=== PATIENT | male | born 1975 | race African-American/Black ===

== ENCOUNTER 2019-06-25 11:07 | Emergency (ER) | payer SELFPAY ==
--- OUTSIDE RECORDS SUMMARY | 2019-06-25 11:09 | XMS REPORT ---
:1975 Author Organization [facility] Address [address] [place] [address] [address] [place] [address] Care Team Providers Name Role Phone Unavailable Unavailable Unavailable Payers Payer Name Policy Type Policy Number Effective Date Expiration Date Problems This patient has no known problems. Allergies, Adverse Reactions, Alerts Allergy Allergy Status Severity Reaction(s) Onset Inactive Treating Comments Name Type Date Date Clinician No Known DA Active U 2018-10 Allergies 00:00:0 0 No Known DA Active U 2005-11 Contrast -30 Allergies 00:00:0 0 No Known DA Active U 2005-11 Drug -30 Allergies 00:00:0 0 No Known DA Active U 2005-11 Food -30 Allergies 00:00:0 0 No Known DA Active U 2005-11 Other -30 Allergies 00:00:0 0 Medications This patient has no known medications. Results Test Description Test Time Test Comments Text Results Atomic Results Result Comments - XR ELBOW 3+V RT 2018-11-08 13:12:00 Name: SUNITA NUNES [facility] Анна : 1975 Age/S: 42 / M [id number] [place] Unit #: [id number] Loc: [place] [address] Phys: Joselo Sheppard MD Acct: [id number] Dis Date: Status: REG ER PHONE #: [phone] Exam Date: 11/08/2018 1305 FAX #: Reason: right elbow EXAMS: CPT: [id number] XR ELBOW 3+V RT [address] Fluoro Time: DAP (Gy m2): Air Kerma (mGy): EXAMINATION: - XR ELBOW 3+V RT. LOCATION: B2. HISTORY: right elbow. COMPARISON: None. TECHNIQUE: AP, lateral, and oblique views of the right elbow were obtained. FINDINGS: No acute fracture or dislocation is identified. Soft tissue structures appear within normal limits. IMPRESSION: No acute osseous abnormality is identified. at 1312 Reported and signed by: Negin De León M.D. CC: Ioana BAKER; Joselo Sheppard MD PAGE 1 Signed Report Name: SUNITA NUNES [facility] Анна : 1975 Age/S: 42 / M [address] Unit #: [id number] Loc: [place] [address] Phys: Joselo Sheppard MD Acct: [id number] Dis Date: Status: REG ER PHONE #: [phone] Exam Date: 11/08/2018 1305 FAX #: Reason: right elbow EXAMS: CPT: [id number] XR ELBOW 3+V [place] [address] Fluoro Time: DAP (Gy m2): Air Kerma (mGy): <Continued> Technologist: Poonam Alexander, RT(R); ... Trnscb Date/Time: 11/08/2018 (3042) [email or web address] Orig Print D/T: S: 11/08/2018 (2348) PAGE 2 Signed Report
[2019-06-25] MEDS ORDERED: FENTANYL CITR 100 MCG/2 ML ONE (11:47)
[2019-06-25] MEDS ORDERED: METHOCARBAMOL 1,000 MG/10 ML VIAL IV ONE (11:48)
[2019-06-25] MEDS ORDERED: KETOROLAC 30 MG/ML INJ ONE (11:49)
[2019-06-25] MEDS ORDERED: NA CHLORIDE 0.9% 100 ML IV ONE (11:49)
[2019-06-25] MEDS ORDERED: dexAMETHasone 4 MG/ML VIAL ONE (11:57)
--- NOTE | 2019-06-25 13:16 | ER ---
Nurse's Notes [facility] Name: Kyle Keita Age: 43 yrs Sex: Male : 1975 Arrival Date: 06/25/2019 Time: 11:18 Bed 13 Private MD: Diagnosis: Low back pain Presentation: 06/25 11:21 Presenting complaint: EMS states: Picking up a mud-pit at work, felt pop in low back jl7 and then pain all over, reports low back pain rated 6/10. Transition of care: patient was not received from another setting of care. Onset of symptoms was June 25, 2019. Risk Assessment: Do you want to hurt yourself or someone else? Patient reports no desire to harm self or others. Initial Sepsis Screen: Does the patient meet any 2 criteria? No. Patient's initial sepsis screen is negative. Does the patient have a suspected source of infection? No. Patient's initial sepsis screen is negative. Care prior to arrival: Medication(s) given: Fentanyl 75 mcg IVP IV initiated. 20 GA, in the right antecubital area. 11:21 Method Of Arrival: EMS: [facility] jl7 11:21 Acuity: LEIGH 4 jl7 Historical: - Allergies: 11:23 No Known Allergies; jl7 - Home Meds: 11:23 None [Active]; jl7 - PMHx: 11:23 None; jl7 - PSHx: 11:23 None; jl7 - Immunization history:: Adult Immunizations unknown. - Coronavirus screen:: The patient has NOT traveled to [place], [place], or [place] in the past 14 days. Proceed with normal triage process as indicated. - Social history:: Smoking status: Patient reports the use of cigarette tobacco products, smokes one-half pack cigarettes per day. - Ebola Screening: : No symptoms or risks identified at this time. Screenin:35 Abuse screen: Denies threats or abuse. Denies injuries from another. Nutritional ca1 screening: No deficits noted. Tuberculosis screening: No symptoms or risk factors identified. [place] Risk IV access (20 points). Assessment: 11:35 General: Appears in no apparent distress. comfortable, Behavior is calm, cooperative, ca1 appropriate for age. Pain: Complains of pain in low back area Pain does not radiate. Pain currently is 7 out of 10 on a pain scale. Neuro: Level of Consciousness is awake, alert, obeys commands, Oriented to person, place, time, situation, Appropriate for age. Cardiovascular: Heart tones S1 S2 present. Cardiovascular: Capillary refill < 3 seconds Patient's skin is warm and dry. Respiratory: Airway is patent Respiratory effort is even, unlabored, Respiratory pattern is regular, symmetrical, Breath sounds are clear bilaterally. GI: Abdomen is flat, non-distended, Bowel sounds present X 4 quads. Abd is soft and non tender X 4 quads. : No deficits noted. No signs and/or symptoms were reported regarding the genitourinary system. EENT: No deficits noted. No signs and/or symptoms were reported regarding the EENT system. Derm: Skin is intact, is healthy with good turgor, Skin is pink, warm \T\ dry. Musculoskeletal: Circulation, motion, and sensation intact. Capillary refill < 3 seconds. 12:36 Reassessment: Patient appears in no apparent distress at this time. No changes from ca1 previously documented assessment. Patient and/or family updated on plan of care and expected duration. Pain level reassessed. Patient is alert, oriented x 3, equal unlabored respirations, skin warm/dry/pink. 13:34 Reassessment: Patient appears in no apparent distress at this time. Patient is alert, ca1 oriented x 3, equal unlabored respirations, skin warm/dry/pink. Vital Signs: 11:23 BP 138 / 99; Pulse 58; Resp 16 S; Temp 97.9(O); Pulse Ox 99% on R/A; Weight 88.45 kg 7 (R); Height 6 ft. 2 in. (187.96 cm) (R); Pain 6/10; 12:36 BP 121 / 86; Pulse 57; Resp 16 S; Pulse Ox 100% on R/A; ca1 13:34 BP 124 / 83; Pulse 62; Resp 16 S; Pulse Ox 99% on R/A; Pain 2/10; ca1 11:23 Body Mass Index 25.04 (88.45 kg, 187.96 cm) 7 ED Course: 11:18 Patient arrived in ED. bd 11:22 Triage completed. jl7 11:23 Ernst Resendiz PA is PHCP. jr8 11:23 Cholo Cunningham MD is Attending Physician. jr8 11:23 Arm band placed on right wrist. hayes 11:35 Patient has correct armband on for positive identification. Bed in low position. Call ca1 light in reach. Side rails up X 1. Pulse ox on. NIBP on. 11:35 No provider procedures requiring assistance completed. Maintain EMS IV. Dressing ca1 intact. Good blood return noted. Site clean \T\ dry. Gauge \T\ site: G22 RAC. 12:20 Eve Carrasquillo, RN is Primary Nurse. ca1 13:35 IV discontinued, intact, bleeding controlled, No redness/swelling at site. Pressure ca1 dressing applied. Administered Medications: 11:40 Drug: Decadron - Dexamethasone 10 mg Route: IVP; Site: right antecubital; ca1 12:30 Follow up: Response: No adverse reaction; Pain is decreased ca1 11:42 Drug: fentaNYL (PF) 50 mcg {Note: RASS - 0.} Route: IVP; Site: right antecubital; ca1 12:30 Follow up: Response: No adverse reaction; Pain is decreased; RASS: Alert and Calm (0) ca1 11:45 Drug: TORadol - Ketorolac 15 mg Route: IVP; Site: right antecubital; ca1 12:30 Follow up: Response: No adverse reaction; Pain is decreased ca1 11:50 Drug: Robaxin 1 grams Route: IVPB; Infused Over: 1 hrs; Site: right antecubital; ca1 12:50 Follow up: Response: No adverse reaction; Pain is decreased; IV Status: Completed ca1 infusion Outcome: 13:16 Discharge ordered by . senthil 13:35 Discharged to home ambulatory, with friend. ca1 13:35 Condition: stable 13:35 Discharge instructions given to patient, Instructed on discharge instructions, follow up and referral plans. no drinking with medication, no driving heavy equipment, medication usage, Demonstrated understanding of instructions, follow-up care, medications, Prescriptions given X 3. 13:36 Patient left the ED. ca1 Signatures: Enid Christy Josh, PA PA jr8 Mauricio Rousseau, RN RN jl7 Eve Carrasquillo RN RN ca1
--- NOTE | 2019-06-25 13:17 | EDPHYS ---
Physician Documentation [facility] Name: Kyle Keita Age: 43 yrs Sex: Male : 1975 Arrival Date: 06/25/2019 Time: 11:18 Bed 13 Private MD: ED Physician Cholo Cunningham HPI: 06/25 13:12 This 43 yrs old Black Male presents to ER via EMS with complaints of low back pain. jr8 13:12 The patient presents with pain that is acute. The symptoms are located in the low back. jr8 The pain does not radiate. The problem was sustained when lifting heavy object. Onset: The symptoms/episode began/occurred acutely, just prior to arrival, today. Modifying factors: The patient symptoms are alleviated by nothing, the patient symptoms are aggravated by any movement. Associated signs and symptoms: The patient has no apparent associated signs or symptoms. Severity of symptoms: At their worst the symptoms were moderate, in the emergency department the symptoms are unchanged. The patient has not experienced similar symptoms in the past. The patient has not recently seen a physician. Stated that they were lifting heavy objects at work. [place] pop in back. Since then has had pain to low back. Worse with movement. Denies numbness, tingling, saddle anesthesia, bowel or bladder dysfunction . Historical: - Allergies: 11:23 No Known Allergies; jl7 - Home Meds: 11:23 None [Active]; jl7 - PMHx: 11:23 None; jl7 - PSHx: 11:23 None; jl7 - Immunization history:: Adult Immunizations unknown. - Coronavirus screen:: The patient has NOT traveled to [place], [place], or [place] in the past 14 days. Proceed with normal triage process as indicated. - Social history:: Smoking status: Patient reports the use of cigarette tobacco products, smokes one-half pack cigarettes per day. - Ebola Screening: : No symptoms or risks identified at this time. ROS: 13:12 Eyes: Negative for injury, pain, redness, and discharge, ENT: Negative for injury, jr8 pain, and discharge, Neck: Negative for injury, pain, and swelling, Cardiovascular: Negative for chest pain, palpitations, and edema, Respiratory: Negative for shortness of breath, cough, wheezing, and pleuritic chest pain, Abdomen/GI: Negative for abdominal pain, nausea, vomiting, diarrhea, and constipation, MS/Extremity: Negative for injury and deformity, Skin: Negative for injury, rash, and discoloration, Neuro: Negative for headache, weakness, numbness, tingling, and seizure. 13:12 Back: Positive for pain at rest, pain with movement, of the low back area, Negative for radiated pain. Exam: 13:12 Eyes: Pupils equal round and reactive to light, extra-ocular motions intact. Lids and jr8 lashes normal. Conjunctiva and sclera are non-icteric and not injected. Cornea within normal limits. Periorbital areas with no swelling, redness, or edema. ENT: Nares patent. No nasal discharge, no septal abnormalities noted. Tympanic membranes are normal and external auditory canals are clear. Oropharynx with no redness, swelling, or masses, exudates, or evidence of obstruction, uvula midline. Mucous membranes moist. Neck: Trachea midline, no thyromegaly or masses palpated, and no cervical lymphadenopathy. Supple, full range of motion without nuchal rigidity, or vertebral point tenderness. No Meningismus. Cardiovascular: Regular rate and rhythm with a normal S1 and S2. No gallops, murmurs, or rubs. Normal PMI, no JVD. No pulse deficits. Respiratory: Lungs have equal breath sounds bilaterally, clear to auscultation and percussion. No rales, rhonchi or wheezes noted. No increased work of breathing, no retractions or nasal flaring. Abdomen/GI: Soft, non-tender, with normal bowel sounds. No distension or tympany. No guarding or rebound. No evidence of tenderness throughout. Skin: Warm, dry with normal turgor. Normal color with no rashes, no lesions, and no evidence of cellulitis. MS/ Extremity: Pulses equal, no cyanosis. Neurovascular intact. Full, normal range of motion. Neuro: Awake and alert, GCS 15, oriented to person, place, time, and situation. Cranial nerves II-XII grossly intact. Motor strength 5/5 in all extremities. Sensory grossly intact. Cerebellar exam normal. Normal gait. 13:12 Back: pain, that is moderate, of the lumbar area and right low back, ROM is painful, normal spinal alignment noted, CVA tenderness, is absent, vertebral tenderness, is not appreciated, muscle spasm, is appreciated in the left low back, right mid back and right low back. Vital Signs: 11:23 BP 138 / 99; Pulse 58; Resp 16 S; Temp 97.9(O); Pulse Ox 99% on R/A; Weight 88.45 kg jl7 (R); Height 6 ft. 2 in. (187.96 cm) (R); Pain 6/10; 12:36 BP 121 / 86; Pulse 57; Resp 16 S; Pulse Ox 100% on R/A; ca1 13:34 BP 124 / 83; Pulse 62; Resp 16 S; Pulse Ox 99% on R/A; Pain 2/10; ca1 11:23 Body Mass Index 25.04 (88.45 kg, 187.96 cm) jl7 MDM: 11:27 Patient medically screened. jr8 13:12 Data reviewed: vital signs, nurses notes, and as a result, I will discharge patient. jr8 Data interpreted: Pulse oximetry: on room air is 100 %. Interpretation: normal. Counseling: I had a detailed discussion with the patient and/or guardian regarding: the historical points, exam findings, and any diagnostic results supporting the discharge/admit diagnosis, the need for outpatient follow up, a family practitioner, to return to the emergency department if symptoms worsen or persist or if there are any questions or concerns that arise at home. 13:12 Differential diagnosis: strain, Herniated disc bulging disc, Cauda Equina syndrome. jr8 Administered Medications: 11:40 Drug: Decadron - Dexamethasone 10 mg Route: IVP; Site: right antecubital; ca1 12:30 Follow up: Response: No adverse reaction; Pain is decreased ca1 11:42 Drug: fentaNYL (PF) 50 mcg {Note: RASS - 0.} Route: IVP; Site: right antecubital; ca1 12:30 Follow up: Response: No adverse reaction; Pain is decreased; RASS: Alert and Calm (0) ca1 11:45 Drug: TORadol - Ketorolac 15 mg Route: IVP; Site: right antecubital; ca1 12:30 Follow up: Response: No adverse reaction; Pain is decreased ca1 11:50 Drug: Robaxin 1 grams Route: IVPB; Infused Over: 1 hrs; Site: right antecubital; ca1 12:50 Follow up: Response: No adverse reaction; Pain is decreased; IV Status: Completed ca1 infusion Disposition: 06/25/19 13:16 Discharged to Home. Impression: Low back pain. - Condition is Stable. - Discharge Instructions: Back Pain, Adult, Musculoskeletal Pain, Back Injury Prevention, [id number], Back Exercises, [id number]-Fayn, Heat Therapy. - Prescriptions for Ibuprofen 800 mg Oral Tablet - take 1 tablet by ORAL route every 12 hours As needed take with food; 20 tablet. Zanaflex 4 mg Oral Tablet - take 1 tablet by ORAL route every 8 hours As needed; 20 tablet. Medrol (Griffin) 4 mg Oral Tablets, Dose Pack - take 1 tablet by ORAL route as directed - follow package instructions; 1 packet. - Work release form, Medication Reconciliation Form, Thank You Letter, Antibiotic Education, Prescription Opioid Use form. - Follow up: Private Physician; When: 1 week; Reason: Recheck today's complaints, Continuance of care, Re-evaluation by your physician. - Problem is new. - Symptoms have improved. Addendum: 06/27/2019 08:05 Co-signature as Attending Physician, Cholo Cunningham MD I agree with the assessment and c phelan plan of care. Signatures: Cholo Cunningham MD MD cha Roszak, Josh, PA PA jr8 Mauricio Rousseau RN RN jl7 Eve Carrasquillo RN RN ca1 Corrections: (The following items were deleted from the chart) 06/25 13:36 13:16 06/25/2019 13:16 Discharged to Home. Impression: Low back pain. Condition is ca1 Stable. Forms are Medication Reconciliation Form, Thank You Letter, Antibiotic Education, Prescription Opioid Use. Follow up: Private Physician; When: 1 week; Reason: Recheck today's complaints, Continuance of care, Re-evaluation by your physician. Problem is new. Symptoms have improved. jr8
[2019-06-27 06:26] VITALS: TEMP 97.9
[2019-06-27 06:29] VITALS: BP 124/83; O2SAT 99
== END 2019-06-25 13:36 | disposition home or self-care (01) ==
LOC: ER 11:07
DX: M54.5 Low back pain (principal); F17.210 Nicotine dependence, cigarettes, uncomplicated; X50.0XXA Overexertion from strenuous movement or load, initial encounter; Y93.89 Activity, other specified; Y92.89 Other specified places as the place of occurrence of the external cause; Y99.0 Civilian activity done for income or pay
CPT/HCPCS: 96365; 96375; 99284; J2800; J3010